=== PATIENT | female | born 1995 | race Hispanic/Latino ===

== ENCOUNTER 2021-02-03 21:18 | Day surgery (SDC) | payer OTHER ==
[2021-02-03 21:37] VITALS: BMI 34.7
[2021-02-03] MEDS ORDERED: hydrALAZINE 20 MG/ML VIAL SLOW IVP PRN (22:45)
== END 2021-02-03 22:50 | disposition home or self-care (01) ==
LOC: CSHLD/OP 21:18
PROVIDERS: ATTEND Obstetrics & Gynecology
DX: O36.8120 Decreased fetal movements, second trimester, not applicable or unspecified (principal); Z3A.20 20 weeks gestation of pregnancy; Z79.82 Long term (current) use of aspirin; Z88.2 Allergy status to sulfonamides; Z91.018 Allergy to other foods; W19.XXXA Unspecified fall, initial encounter
CPT/HCPCS: 99282

== ENCOUNTER 2021-07-17 22:42 | Emergency (ER) | payer OTHER ==
[2021-07-17] MEDS ORDERED: Lidocaine 1% (PF) 30 ML VIAL ONE (23:16)
== END 2021-07-17 23:35 | disposition home or self-care (01) ==
LOC: CSHERS 22:42
DX: L05.01 Pilonidal cyst with abscess (principal); E78.5 Hyperlipidemia, unspecified
CPT/HCPCS: 10080; J2001